=== PATIENT | female | born 1970 | race Caucasian/White ===

== ENCOUNTER → 2018-05-20 | Outpatient (REF) | LOC: ZLAB.WCH 16:22 | DX: Z01.89 Encounter for other specified special examinations (principal) ==

== ENCOUNTER → 2018-05-23 | Outpatient (REF) | LOC: COL.CARD 16:07 | DX: Z01.818 Encounter for other preprocedural examination (principal) ==

== ENCOUNTER 2019-11-30 10:45 | Emergency (ER) | payer OTHER ==
[~2019-11-30] VITALS: Ht 160 cm; Wt 68.2 kg
[2019-11-30 10:58] VITALS: TEMP 98.5
[2019-11-30 11:50] LABS: BASO % 0.6 % (0.0-2.0); EOS # 0.1 (0.0-0.7); EOS % 1.1 % (0-4.0); GRAN # 4.2 (1.4-6.5); GRAN % 66.7 % (42.2-75.2); HEMATOCRIT 39.9 % (37.0-47.0); HEMOGLOBIN 13.9 g/dl (12.5-16.0); LYMPH # 1.5 (1.2-3.4); LYMPH % 24.3 % (20.0-51.0); MEAN CELL VOLUME 89 fl (80.0-100.0); MEAN CORPUSCULAR HEMOGLOBIN 31 pg (27.0-31.0); MEAN CORPUSCULAR HGB CONC 35 g/dl (33.0-37.0); MEAN PLATELET VOLUME 8.8 fl (7.4-10.4); MONO # 0.4 (0.1-0.6); PLATELET COUNT 447 K/mm3 (130-400); RED BLOOD COUNT 4.49 M/mm3 (4.10-5.30); REDCELL DISTRIBUTION WIDTH-CV 12.7 % (11.5-14.5)
[2019-11-30 12:03] LABS: ALBUMIN 4.4 gm/dL (3.5-5.0); BILIRUBIN,TOTAL 0.6 mg/dL (0.0-1.0); C-REACTIVE PROTEIN 0.9 mg/dL (0.0-0.9); CALCIUM 9.8 mg/dL (8.4-10.2); CREATININE, serum 0.47 (0.52-1.25); TOTAL PROTEIN 7.6 gm/dL (6.4-8.2)
[2019-11-30 13:13] LABS: COLLECTION METHOD CLEAN CATCH
[2019-11-30 13:27] LABS: MUCOUS Present /lpf; PH 6 (5-8); SQUAMOUS EPITHELIAL 0-2 /hpf; URINE APPEARANCE Clear; URINE BACTERIA Rare /hpf; URINE BILIRUBIN Negative (NEGATIVE); URINE BLOOD 1+ (NEGATIVE); URINE COLOR Straw; URINE GLUCOSE Negative (NEGATIVE); URINE KETONE 1+ (NEGATIVE); URINE LEUKOCYTE ESTERASE Negative (NEGATIVE); URINE NITRATE Negative (NEGATIVE); URINE PROTEIN(semi-quant) Negative (NEGATIVE); URINE RBC 0-2 /hpf; URINE UROBILINOGEN Negative (NEGATIVE)
[2019-11-30 13:45] VITALS: BP 134/84; PULSE 83
== END 2019-11-30 13:55 | disposition home or self-care (01) ==
LOC: COL.ER 10:45
PROVIDERS: Nurse Practitioner
DX: F41.9 Anxiety disorder, unspecified (principal)
CPT/HCPCS: J7030

== ENCOUNTER 2020-07-06 15:42 | Emergency (ER) | payer OTHER ==
[2005-11-29 15:06] VITALS: BP 101/60
[~2020-07-06] VITALS: Ht 160 cm; Wt 70.0 kg
[2020-07-06 15:44] VITALS: TEMP 99.1
[2020-07-06 16:16] LABS: BASO % 0.5 % (0.0-2.0); EOS # 0.1 (0.0-0.7); EOS % 1.8 % (0-4.0); GRAN # 5.7 (1.4-6.5); GRAN % 76.8 % (42.2-75.2); HEMOGLOBIN 12.3 g/dl (12.5-16.0); LYMPH # 0.5 (1.2-3.4); MEAN CELL VOLUME 89 fl (80.0-100.0); MEAN CORPUSCULAR HEMOGLOBIN 30 pg (27.0-31.0); MEAN CORPUSCULAR HGB CONC 34 g/dl (33.0-37.0); MEAN PLATELET VOLUME 8.4 fl (7.4-10.4); MONO % 13.5 % (1.7-9.3); PLATELET COUNT 412 K/mm3 (130-400); REDCELL DISTRIBUTION WIDTH-CV 12.9 % (11.5-14.5)
[2020-07-06 16:20] LABS: HEMATOCRIT 36.3 % (37.0-47.0)
[2020-07-06 16:30] LABS: ALANINE AMINOTRANSFERASE 15 U/L (4-34); ALBUMIN 4.4 gm/dL (3.5-5.0); ALKALINE PHOSPHATASE 99 U/L (50-136); ANION GAP 10 mmol/L (7-16); AST,SGOT 20 U/L (15-37); BILIRUBIN,TOTAL 0.6 mg/dL (0.0-1.0); BLOOD UREA NITROGEN 5 mg/dL (7-17); C-REACTIVE PROTEIN 1.5 mg/dL (0.0-0.9); CALCIUM 9.5 mg/dL (8.4-10.2); CARBON DIOXIDE 26 mmol/L (22-30); CHLORIDE 97 mmol/L (98-107); CREATININE, serum 0.61 (0.52-1.25); GLUCOSE 142 mg/dL (74-106); POTASSIUM 3.7 mmol/L (3.4-5.0); SODIUM 133 mmol/L (137-145); TOTAL PROTEIN 7.4 gm/dL (6.4-8.2)
[2020-07-06 16:40] LABS: TROPONIN-I < 0.012 ng/mL (0.000-0.035)
[2020-07-06 18:18] VITALS: BP 112/74; PULSE 97
== END 2020-07-06 18:17 | disposition home or self-care (01) ==
LOC: COL.ER 15:42
PROVIDERS: Emergency Medicine
DX: U07.1 COVID-19 (principal); Z90.710 Acquired absence of both cervix and uterus
CPT/HCPCS: J1885; J7030; Q9967

== ENCOUNTER 2020-07-11 12:07 | Emergency (ER) | payer OTHER ==
[2005-11-29 15:06] VITALS: BP 101/60
[~2020-07-11] VITALS: Ht 160 cm; Wt 68.6 kg
[2020-07-11 12:24] VITALS: TEMP 98.1
[2020-07-11 14:13] LABS: BASO % 0.3 % (0.0-2.0); EOS # 0.2 (0.0-0.7); EOS % 2.1 % (0-4.0); GRAN # 6.6 (1.4-6.5); GRAN % 71.1 % (42.2-75.2); HEMOGLOBIN 12.3 g/dl (12.5-16.0); LYMPH # 1.6 (1.2-3.4); MEAN CELL VOLUME 88 fl (80.0-100.0); MEAN CORPUSCULAR HEMOGLOBIN 30 pg (27.0-31.0); MEAN CORPUSCULAR HGB CONC 34 g/dl (33.0-37.0); MEAN PLATELET VOLUME 8.6 fl (7.4-10.4); MONO # 0.9 (0.1-0.6); MONO % 9.2 % (1.7-9.3); PLATELET COUNT 423 K/mm3 (130-400); RED BLOOD COUNT 4.16 M/mm3 (4.10-5.30); REDCELL DISTRIBUTION WIDTH-CV 12.7 % (11.5-14.5)
[2020-07-11 14:14] LABS: HEMATOCRIT 36.7 % (37.0-47.0)
[2020-07-11 14:22] LABS: ALANINE AMINOTRANSFERASE 15 U/L (4-34); ALBUMIN 4.2 gm/dL (3.5-5.0); ALKALINE PHOSPHATASE 83 U/L (50-136); ANION GAP 9 mmol/L (7-16); AST,SGOT 22 U/L (15-37); BILIRUBIN,TOTAL 0.7 mg/dL (0.0-1.0); BLOOD UREA NITROGEN 8 mg/dL (7-17); CALCIUM 9.4 mg/dL (8.4-10.2); CARBON DIOXIDE 26 mmol/L (22-30); CHLORIDE 102 mmol/L (98-107); CREATININE, serum 0.56 (0.52-1.25); GLUCOSE 112 mg/dL (74-106); SODIUM 137 mmol/L (137-145); TOTAL PROTEIN 7.1 gm/dL (6.4-8.2)
[2020-07-11 14:33] LABS: TROPONIN-I < 0.012 ng/mL (0.000-0.035)
[2020-07-11] MEDS ORDERED: TESSALON P100 MG/CAP PO (15:21)
[2020-07-11 15:39] VITALS: BP 148/94; PULSE 84
== END 2020-07-11 15:42 | disposition home or self-care (01) ==
LOC: COL.ER 12:07
PROVIDERS: Emergency Medicine
DX: U07.1 COVID-19 (principal); Z90.710 Acquired absence of both cervix and uterus; Z90.89 Acquired absence of other organs

== ENCOUNTER 2020-08-08 16:56 | Emergency (ER) | payer OTHER ==
[~2020-08-08] VITALS: Ht 160 cm; Wt 71.4 kg
[~2020-08-08 16:56] MED LIST: TESSALON P100 MG/CAP PO
[2020-08-08 17:06] VITALS: TEMP 97.4
[2020-08-08 17:56] LABS: BASO # 0.1 (0.0-0.2); BASO % 0.7 % (0.0-2.0); EOS # 0.2 (0.0-0.7); EOS % 2.8 % (0-4.0); GRAN # 4.5 (1.4-6.5); GRAN % 61.4 % (42.2-75.2); HEMATOCRIT 38.1 % (37.0-47.0); HEMOGLOBIN 12.8 g/dl (12.5-16.0); LYMPH % 27.8 % (20.0-51.0); MEAN CELL VOLUME 90 fl (80.0-100.0); MEAN CORPUSCULAR HEMOGLOBIN 30 pg (27.0-31.0); MEAN CORPUSCULAR HGB CONC 34 g/dl (33.0-37.0); MEAN PLATELET VOLUME 8.9 fl (7.4-10.4); MONO # 0.5 (0.1-0.6); PLATELET COUNT 293 K/mm3 (130-400); RED BLOOD COUNT 4.25 M/mm3 (4.10-5.30); REDCELL DISTRIBUTION WIDTH-CV 13.2 % (11.5-14.5)
[2020-08-08 18:06] LABS: ALBUMIN 4.1 gm/dL (3.5-5.0); BILIRUBIN,TOTAL 0.7 mg/dL (0.0-1.0); CALCIUM 9.4 mg/dL (8.4-10.2); CREATININE, serum 0.63 (0.52-1.25); POTASSIUM 4.1 mmol/L (3.4-5.0); TOTAL PROTEIN 7.1 gm/dL (6.4-8.2)
[2020-08-08] MEDS ORDERED: PREDNISONE20 MG PO (18:51)
[2020-08-08 18:57] VITALS: BP 140/88; PULSE 101
== END 2020-08-08 19:00 | disposition home or self-care (01) ==
LOC: COL.ER 16:56
PROVIDERS: Nurse Practitioner
DX: M79.604 Pain in right leg (principal); F17.200 Nicotine dependence, unspecified, uncomplicated; Z90.710 Acquired absence of both cervix and uterus; Z90.89 Acquired absence of other organs; Z86.16 Personal history of COVID-19
CPT/HCPCS: J7512

== ENCOUNTER 2021-03-29 08:12 | Emergency (ER) | payer OTHER ==
[~2021-03-29] VITALS: Ht 160 cm; Wt 72.7 kg
[~2021-03-29 08:12] MED LIST changes: +PREDNISONE20 MG PO
[2021-03-29 08:27] VITALS: TEMP 98.1
[2021-03-29 09:04] LABS: BASO % 0.5 % (0.0-2.0); EOS # 0.2 (0.0-0.7); EOS % 3.2 % (0-4.0); GRAN # 3.9 (1.4-6.5); GRAN % 65.3 % (42.2-75.2); HEMATOCRIT 41.1 % (37.0-47.0); HEMOGLOBIN 13.6 g/dl (12.5-16.0); LYMPH # 1.4 (1.2-3.4); LYMPH % 22.8 % (20.0-51.0); MEAN CELL VOLUME 93 fl (80.0-100.0); MEAN CORPUSCULAR HEMOGLOBIN 31 pg (27.0-31.0); MEAN CORPUSCULAR HGB CONC 33 g/dl (33.0-37.0); MEAN PLATELET VOLUME 8.9 fl (7.4-10.4); MONO # 0.5 (0.1-0.6); MONO % 7.9 % (1.7-9.3); PLATELET COUNT 359 K/mm3 (130-400); RED BLOOD COUNT 4.43 M/mm3 (4.10-5.30); REDCELL DISTRIBUTION WIDTH-CV 12.9 % (11.5-14.5)
[2021-03-29 09:12] LABS: ALANINE AMINOTRANSFERASE 23 U/L (4-34); ALBUMIN 4.5 gm/dL (3.5-5.0); ALKALINE PHOSPHATASE 70 U/L (50-136); ANION GAP 9 mmol/L (7-16); AST,SGOT 27 U/L (15-37); BLOOD UREA NITROGEN 11 mg/dL (7-17); CALCIUM 9.3 mg/dL (8.4-10.2); CARBON DIOXIDE 27 mmol/L (22-30); CHLORIDE 103 mmol/L (98-107); CREATININE, serum 0.64 (0.52-1.25); GLUCOSE 123 mg/dL (74-106); LIPASE 145 U/L (23-300); POTASSIUM 3.9 mmol/L (3.4-5.0); SODIUM 138 mmol/L (137-145); TOTAL PROTEIN 7.2 gm/dL (6.4-8.2)
[2021-03-29 09:13] LABS: C-REACTIVE PROTEIN < 0.5 mg/dL (0.0-0.9)
[2021-03-29] MEDS ORDERED: NAPROSYN500 MG PO (10:42)
[2021-03-29] MEDS ORDERED: NORCO 325 MG-51 TAB PO (10:42)
[2021-03-29 11:00] VITALS: BP 163/97; PULSE 75
== END 2021-03-29 11:09 | disposition home or self-care (01) ==
LOC: COL.ER 08:12
PROVIDERS: Emergency Medicine
DX: K42.9 Umbilical hernia without obstruction or gangrene (principal)
CPT/HCPCS: J1885; J2405; J7030; Q9967

== ENCOUNTER → 2022-05-17 | Outpatient (CLI) | payer OTHER ==
[~2022-05-17] MED LIST changes: +NAPROSYN500 MG PO; +NORCO 325 MG-51 TAB PO
== END ==
LOC: MC.RAD 10:41
DX: Z12.31 Encounter for screening mammogram for malignant neoplasm of breast (principal)

== ENCOUNTER → 2023-06-21 | Outpatient (CLI) | payer BC ==
[2005-11-29 15:31] VITALS: BP 101/60; PULSE 104; TEMP 99.5
[~2023-06-21] MED LIST changes: +BENTYL 10MG10 MG/CAP PO
== END ==
LOC: MC.RAD 12:58
DX: N64.89 Other specified disorders of breast (principal)

== ENCOUNTER → 2024-03-12 | Outpatient (CLI) | payer BC | LOC: COL.RAD 08:44 | DX: R49.0 Dysphonia (principal); M54.2 Cervicalgia ==